=== PATIENT | female | born 1990 | race Hispanic/Latino ===

== ENCOUNTER 2018-05-02 10:30 | Emergency (ER) | payer OTHER ==
[~2018-05-02] VITALS: Ht 160 cm; Wt 85.3 kg
[2018-05-02 11:09] VITALS: BP 118/80
== END 2018-05-02 11:07 | disposition home or self-care (01) ==
LOC: ER 10:30
DX: J00 Acute nasopharyngitis [common cold] (principal); J30.2 Other seasonal allergic rhinitis; Z88.1 Allergy status to other antibiotic agents
CPT/HCPCS: 99282